=== PATIENT | female | born 1975 | race Caucasian/White ===

== ENCOUNTER 2018-10-13 10:54 | Day surgery (SDC) | payer OTHER ==
[2018-10-13] MEDS ORDERED: GENTAMICIN 80 MG INJ (13:19)
[2018-10-13] MEDS ORDERED: BUPIVACAINE 0.25% (MPF) 30 ML INJ (13:19)
[2018-10-13] MEDS ORDERED: HYDROCODONE/APAP (5/325) TAB PO (13:30)
[2018-10-13] MEDS ORDERED: ACETAMINOPHEN 325 MG TAB PO (13:30)
[2018-10-13] MEDS ORDERED: morphine 2 MG INJ IV (13:30)
[2018-10-13] MEDS ORDERED: MIDAZOLAM 1 MG/ML 2 ML INJ (13:30)
[2018-10-13] MEDS ORDERED: ONDANSETRON 4 MG INJ IV (13:30)
[2018-10-13] MEDS ORDERED: DIPHENHYDRAMINE 50 MG INJ IV (13:30)
[2018-10-13] MEDS ORDERED: HYDROmorphONE 1 MG/5 ML IV SYRINGE IV (13:30)
[2018-10-13] MEDS ORDERED: METOCLOPRAMIDE 10 MG INJ (13:35)
[2018-10-13] MEDS ORDERED: ONDANSETRON 4 MG INJ (13:35)
[2018-10-13] MEDS ORDERED: CEFAZOLIN 1 GM INJ (13:37)
[2018-10-13] MEDS ORDERED: PROPOFOL 20 ML (13:37)
[2018-10-13] MEDS ORDERED: FENTAnyl 50 MCG/ML VIAL (13:38)
[2018-10-13] MEDS ORDERED: HYDROmorphONE 2 MG/ML SYG (13:59)
[2018-10-13] MEDS: BUPIVACAINE 0.25%/EPI (SDV) 10 ML INJ ×2 (14:37→14:54)
[2018-10-13] MEDS: POLYMYXIN/BACITRACIN 1L IRRIG (14:54)
[2018-10-13] MEDS: BUPIVACAINE LIPOSOME/PF 266 MG/20 ML VIAL INFIL (14:54)
[2018-10-13] MEDS: SODIUM CL BACTERIOSTATIC 30 ML INJ (14:55)
[2018-10-13] MEDS ORDERED: DEXAMETHASONE 4 MG/ML 1 ML INJ (16:29)
[2018-10-13] MEDS ORDERED: DIPHENHYDRAMINE 50 MG INJ (16:30)
[2018-10-13] MEDS: ONDANSETRON 4 MG INJ IV (17:22)
[2018-10-13] MEDS: HYDROmorphONE 1 MG/5 ML IV SYRINGE IV ×4 (17:22→19:50)
[2018-10-13] MEDS: MEPERIDINE 25 MG INJ IV (17:41)
== END 2018-10-13 20:53 | disposition home or self-care (01) ==
LOC: SDS 10:54
DX: T85.49XA Other mechanical complication of breast prosthesis and implant, initial encounter (principal); Y83.8 Other surgical procedures as the cause of abnormal reaction of the patient, or of later complication, without mention of misadventure at the time of the procedure
CPT/HCPCS: 19371; 87070; 88104; 88305; 88307